=== PATIENT | male | born 1935 | race Caucasian/White ===

== ENCOUNTER 2016-11-25 09:47 | Inpatient (IN) | payer MEDICARE, OTHER ==
--- NOTE | ~2016-11-25 | DS ---
Discharge Summary [address] [place] [address] NAME: BABATUNDE RODRIGUEZ : 31 STATUS : DIS IN PAT#: [id number] AGE: 81 ADM/REG DATE : 11/25/16 MR#: [id number] REPORT SERV DATE: 12/03/16 DICTATED BY: MARIANO LOCKE DATE: 12/03/16 REPORT STATUS : Draft TRANSCRIBED BY: CHELSY DATE: 12/03/16 Data Collection from hospitalization DISCHARGE DIAGNOSES: 1. ST-elevation myocardial infarction - acute. 2. Coronary artery disease with history of coronary artery bypass grafting. 3. Left ventricular dysfunction. 4. Prostate hypertrophy. 5. History of nephrolithiasis. 6. Former smoker. CONSULTATIONS: None. PROCEDURES PERFORMED: Cardiac catheterization and percutaneous coronary intervention on 11/25/2016. MEDICATIONS: Vitamin C 500 mg daily, aspirin 81 mg daily, Lipitor 10 mg at bedtime, Prinivil 2.5 mg daily, Lopressor 12.5 mg twice a day, NitroQuick 0.4 mg sublingually every five minutes x3 as needed, Prilosec 20 mg daily, Florastor 250 mg daily, Flomax 0.4 mg at bedtime, Brilinta 90 mg twice a day, and saw palmetto one capsule daily. CONDITION AT DISCHARGE: Stable. DISPOSITION: The patient was discharged home on a low-sodium, low-cholesterol diet with activities as instructed. He would follow up with Dr. Lambert Chong three weeks following discharge. HOSPITAL COURSE: This is an 81-year-old man who presented to [facility] as a direct transfer from [facility] for evaluation and management of an acute myocardial infarction. The patient has a cardiovascular history of known coronary artery disease with prior bypass surgery in 1998, at which time, he underwent revascularization with three grafts. He subsequently underwent multiple percutaneous coronary intervention procedures, both to his [place] arteries and his vein grafts. He said that the last one was in 2009, but according to the medical record, 2004 is the date when these events were recorded. 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 His EKG in the emergency department was notable for inferolateral ST-elevation and code STEMI was activated. Based on the description of the EKG and his presentation, I agreed to bring him to the agriculture laborer emergently. He received aspirin and heparin en route. He was admitted to the hospital for further evaluation and treatment. Upon admission, he was taken to the cardiac agriculture laborer. He was in obvious distress and was reporting 9/10 chest discomfort. Cardiac catheterization was performed, which demonstrated a culprit large acute marginal branch of the circumflex that was successfully revascularized with a drug-eluting stent. He did have other obstructive lesions in the [place] and graft lesions that were not treated. He had complete resolution of his chest pain at the conclusion of the procedure. The patient was going to be treated with standard acute Discharge Summary [address] [address] NAME: BABATUNDE RODRIGUEZ : 33 STATUS : DIS IN PAT#: [id number] AGE: 81 ADM/REG DATE : 11/25/16 MR#: [id number] REPORT SERV DATE: 12/03/16 DICTATED BY: MARIANO LOCKE DATE: 12/03/16 REPORT STATUS : Draft TRANSCRIBED BY: CHELSY DATE: 12/03/16 coronary syndrome medications including dual anti-platelet therapy with aspirin and Brilinta. He had previously not tolerated Lipitor and was not on a statin prior to arrival, but we would attempt low-dose Crestor as an alternative. Regarding his obstructive disease in the other coronary arteries, we favored a staged approach to the saphenous vein graft- diagonal disease and ramus disease, both of which are obstructive and amenable to percutaneous coronary intervention. We would consider percutaneous coronary intervention of the right coronary artery, but as this was the less severe of the three, we may opt for medical therapy. Echocardiogram was going to be performed. The following day, he was evaluated by Occupational and Physical Therapy. Echocardiogram was performed. He was in no acute distress. He was going to be transferred to the floor. Lipitor was changed to Crestor. Over the next couple of days, he continued to progress. He had no dyspnea or chest pain. Left ventricular ejection fraction was 45%. He had no edema. Discharge planning was performed. On 11/28/2016, he said he felt well. He was in no acute distress. Creatinine level was 1.09. Discharge instructions were given. Due to his improved and stable condition, he was discharged home with the above-stated instructions. Information collected by: Niecy Pina I submit the above information as my discharge summary. CALLIE/CHELSY Mariano Locke MD / [id number] CC: MD DANA Kowalski ANDERS JAVAD
--- NOTE | ~2016-11-25 | HP ---
History And Physical [id number] [place]. [address] NAME: BABATUNDE RODRIGUEZ : 31 STATUS : ADM IN PAT#: [id number] AGE: 81 ADM/REG DATE : 11/25/16 MR#: [id number] REPORT SERV DATE: 11/25/16 DICTATED BY: MARIANO LOCKE DATE: 11/25/16 REPORT STATUS : Draft TRANSCRIBED BY: MODL DATE: 11/25/16 DATE OF ADMISSION: 11/25/2016 ADMISSION DIAGNOSIS: Acute myocardial infarction. HISTORY OF PRESENT ILLNESS: Mr. Rodriguez is an 81-year-old male, who presented to [facility] Cardiac catheterization lab as a direct transfer from [facility] for evaluation and management of acute myocardial infarction. He has a cardiovascular history of known coronary heart disease with prior bypass surgery in 1998, at which time he underwent revascularization with three grafts. He subsequently underwent multiple PCI procedures both to his [place] arteries and his vein grafts. He states that the last one was in 2009, but per the medical record, 2004 is the date where these events are recorded. He states he was in his usual state of health until late last night/early this morning when he experienced severe discomfort in his substernal chest wall. This persisted throughout the morning and eventually led him to present to the ED. His EKG in the ED was notable for inferolateral ST elevations and a code STEMI was activated. Based on the description of the EKG and his presentation, I agreed to bring him to the cemetery laborer emergently. He received aspirin and heparin en route. Upon arrival to cemetery laborer, he was in obvious distress, reporting 9/10 chest discomfort. He reports shortness of breath but denied any palpitations, presyncope, or syncope. He was not taking Plavix but was taking aspirin. Cardiac catheterization was performed. The findings are detailed separately but in summary demonstrated a culprit large acute marginal branch of the circumflex that was successfully revascularized with a drug-eluting stent. He did have other obstructive lesions in the [place] and graft lesions that were not treated. He had complete resolution of his chest pain at the conclusion of the procedure. PAST MEDICAL HISTORY: Coronary heart disease status post three-vessel CABG, 11/19/1998, PIERCE- LAD, SVG-PDA, and SVG-diagonal. The patient has also had multiple stents to the [place] RCA and SVG-diagonal and [place] ramus in 02/2005 at [facility] in [place], [place]. He underwent a stress test in 10/2016 that was interpreted as low risk with no perfusion defects. An echocardiogram that demonstrated normal LV systolic function at that time as well. The patient has prostate hypertrophy, on medical therapy for this, and previous imaging demonstrating nephrolithiasis. Otherwise, no significant past medical history. MEDICATIONS: Per recent office visit, the patient was on aspirin, metoprolol, sublingual nitroglycerin, and tamsulosin. SOCIAL HISTORY: Former smoker. No alcohol. Regular caffeine use. Independent in ADLs. FAMILY HISTORY: Noncontributory. History And Physical [address] [address] NAME: BABATUNDE RODRIGUEZ : 33 STATUS : ADM IN [facility]#: [id number] AGE: 81 ADM/REG DATE : 11/25/16 MR#: [id number] REPORT SERV DATE: 11/25/16 DICTATED BY: MARIANO LOCKE DATE: 11/25/16 REPORT STATUS : Draft TRANSCRIBED BY: CHELSY DATE: 11/25/16 REVIEW OF SYSTEMS: Per HPI. Otherwise, negative. PHYSICAL EXAMINATION: On arrival to the cemetery laborer: VITAL SIGNS: Heart rate approximately 60, blood pressure 120/80, respiratory rate 16, 9/10 chest pain. GENERAL: Appears comfortable. HEENT: Sclerae anicteric; mucous membranes moist. NECK: No JVD. Thyroid not tender or enlarged CARDIOVASCULAR: Regular rhythm with normal S1/S2. No murmurs, rubs, or gallop. PULMONARY: Lung warren CTA. ABDOMEN: Soft, nontender, no masses EXTREMITIES: Warm, no edema. NEUROLOGIC: Grossly without deficits. DIAGNOSTIC DATA: EKG demonstrated sinus rhythm with ST elevations in the inferolateral leads. Cardiac cath dictated separately and summarized in HPI. IMPRESSION/RECOMMENDATIONS: 1. Acute myocardial infarction status post primary PCI to culprit circumflex/OM. 2. Coronary artery disease, history of CABG/PCI. 3. History of tobacco abuse. The patient will be treated with standard ACS medications including dual antiplatelet therapy with aspirin and Brilinta. He previously has not tolerated Lipitor and was not on a statin prior to arrival, but we will attempt low-dose Crestor as an alternative. Regarding obstructive disease in other coronary arteries, I would favor a staged approach to his SVG-diagonal disease and ramus disease, both of which are obstructive and amenable to PCI. Would also consider PCI of the RCA but as this is the less severe of the three, may opt for medical therapy. Timing to be determined by clinical course, but anticipate outpatient followup. We will check an echocardiogram. Further recommendations pending initial clinical course. GREG/CHELSY Mariano Locke MD / [id number] CC: Mariano Locke MD
[2016-11-25 10:39] LABS: BASOPHILS 0.5 %; BASOPHILS ABSOLUTE 0.03 10/3/uL (0.0-0.16); EOSINOPHILS 2.2 %; EOSINOPHILS ABSOLUTE 0.13 10/3/uL (0.0-0.53); HEMATOCRIT 42.1 % (40.0-51.0); HEMOGLOBIN 14.6 g/dL (13.6-17.8); IMMATURE GRANULOCYTES 0.2 %; IMMATURE GRANULOCYTES ABSOLUTE 0.01 10/3/uL (0.0-0.11); LYMPHOCYTES 12.9 %; LYMPHOCYTES ABSOLUTE 0.77 10/3/uL (0.67-4.30); MEAN CORPUS HGB CONC 34.7 g/dL (32.0-36.0); MEAN CORPUSCULAR HEMOGLOB 29.6 pg (26.0-34.0); MEAN CORPUSCULAR VOLUME 85.4 fL (80-100); MONOCYTES ABSOLUTE 0.48 10/3/uL (0.21-1.20); NEUTROPHILS 76.2 %; NEUTROPHILS ABSOLUTE 4.55 10/3/uL (2.02-8.40); PLATELET COUNT 120 10/3/uL (150-400); RBC DISTRIBUTION WIDTH 13.5 % (12.0-16.0); RED CELL COUNT 4.93 10/6/uL (4.7-6.1)
[2016-11-25 10:40] LABS: MANUAL DIFF NO %
[2016-11-25 10:45] LABS: INTERNATIONAL NORMAL RATI 1.3 UNITS (-)
[2016-11-25 10:49] LABS: PARTIAL THROMBO TIME 111.7 SEC (22.5-37.2)
[2016-11-25 10:54] LABS: CALCIUM, SERUM 8.1 MG/DL (8.5-10.4); CHLORIDE, SERUM 109 MMOL/L (96-112); CO2 (CARBON DIOXIDE) 28 MMOL/L (24-34); CREATININE 0.92 MG/DL (0.70-1.30); GFR AFRICAN AMERICAN 89 ML/MIN (>=60); GFR NON AFRICAN AMERICAN 77 ML/MIN (>=60); POTASSIUM, SERUM 4.5 MMOL/L (3.5-5.3); SODIUM, SERUM 141 MMOL/L (135-148)
[2016-11-25 10:55] LABS: BUN (BLOOD UREA NITROGEN) 14 MG/DL (6-23); CHEST PAIN PROFILE TAT 0 Hrs 21 Mins; GLUCOSE, SERUM 141 MG/DL (60-99); TROPONIN I 0.13 NG/ML (<0.05)
[2016-11-25] MEDS ORDERED: PRILO PO (11:40)
[2016-11-25] MEDS ORDERED: LOP25 PO (11:40)
[2016-11-25] MEDS ORDERED: ASAB PO (11:43)
[2016-11-25] MEDS ORDERED: NITROQUICK0.4 MG SL (11:43)
[2016-11-25] MEDS ORDERED: FLOMAX4 PO (11:44)
[2016-11-25] MEDS ORDERED: MULTIVITAMI1 PO (11:45)
[2016-11-25] MEDS ORDERED: SAW PALMETTO PO (11:47)
[2016-11-25] MEDS ORDERED: FLORASTOR250 MG PO (11:48)
[2016-11-25] MEDS ORDERED: VITC500 PO (11:49)
[2016-11-25 13:07] LABS: CK-MB 6.7 NG/ML; CPK 162 U/L (0-200)
[2016-11-25 13:08] LABS: CKMB INDEX (NOT ORD) 4.1
[2016-11-25 19:18] LABS: CK-MB 273.6 NG/ML; CKMB INDEX (NOT ORD) 9.6
[2016-11-26 03:24] LABS: BASOPHILS 0.1 %; BASOPHILS ABSOLUTE 0.01 10/3/uL (0.0-0.16); EOSINOPHILS 2.4 %; EOSINOPHILS ABSOLUTE 0.16 10/3/uL (0.0-0.53); HEMATOCRIT 45.1 % (40.0-51.0); HEMOGLOBIN 15.2 g/dL (13.6-17.8); IMMATURE GRANULOCYTES 0.1 %; IMMATURE GRANULOCYTES ABSOLUTE 0.01 10/3/uL (0.0-0.11); LYMPHOCYTES 12.8 %; LYMPHOCYTES ABSOLUTE 0.86 10/3/uL (0.67-4.30); MANUAL DIFF NO %; MEAN CORPUS HGB CONC 33.7 g/dL (32.0-36.0); MEAN CORPUSCULAR HEMOGLOB 29.5 pg (26.0-34.0); MEAN CORPUSCULAR VOLUME 87.4 fL (80-100); MEAN PLATELET VOLUME 10.4 fL (9.2-13.0); MONOCYTES 8.7 %; MONOCYTES ABSOLUTE 0.58 10/3/uL (0.21-1.20); NEUTROPHILS 75.9 %; NEUTROPHILS ABSOLUTE 5.08 10/3/uL (2.02-8.40); PLATELET COUNT 118 10/3/uL (150-400); RBC DISTRIBUTION WIDTH 13.7 % (12.0-16.0); RED CELL COUNT 5.16 10/6/uL (4.7-6.1); WHITE BLOOD CELLS 6.7 10/3/uL (4.5-10.5)
[2016-11-26 03:59] LABS: BUN (BLOOD UREA NITROGEN) 13 MG/DL (6-23); CALCIUM, SERUM 8.3 MG/DL (8.5-10.4); CHLORIDE, SERUM 107 MMOL/L (96-112); CK-MB 135.1 NG/ML; CO2 (CARBON DIOXIDE) 30 MMOL/L (24-34); CPK 1853 U/L (0-200); CREATININE 1.21 MG/DL (0.70-1.30); GFR AFRICAN AMERICAN 64 ML/MIN (>=60); GFR NON AFRICAN AMERICAN 55 ML/MIN (>=60); GLUCOSE, SERUM 116 MG/DL (60-99); POTASSIUM, SERUM 4.8 MMOL/L (3.5-5.3); SODIUM, SERUM 141 MMOL/L (135-148); TRIGLYCERIDE 188 MG/DL (< 150)
[2016-11-26 04:08] LABS: CHOL/HDL RATIO(NOT ORDER) 4.9 (0-5); CHOLESTEROL 133 MG/DL (< 200); CKMB INDEX (NOT ORD) 7.3; HDL CHOLESTEROL 27 MG/DL (> 39); LDL CHOLESTEROL 69 MG/DL (< 130); NON-HDL CHOLESTEROL 106 MG/DL (< 160)
[2016-11-26 10:46] LABS: CK-MB 59.4 NG/ML; CKMB INDEX (NOT ORD) 4.8
[2016-11-27 06:46] LABS: CREATININE 1.2 MG/DL (0.70-1.30)
[2016-11-28 05:32] LABS: HEMATOCRIT 43.4 % (40.0-51.0); HEMOGLOBIN 14.7 g/dL (13.6-17.8)
[2016-11-28 05:47] LABS: CALCIUM, SERUM 8.7 MG/DL (8.5-10.4); CHLORIDE, SERUM 108 MMOL/L (96-112); CO2 (CARBON DIOXIDE) 26 MMOL/L (24-34); CREATININE 1.09 MG/DL (0.70-1.30); GFR AFRICAN AMERICAN 72 ML/MIN (>=60); GFR NON AFRICAN AMERICAN 62 ML/MIN (>=60); GLUCOSE, SERUM 137 MG/DL (60-99); POTASSIUM, SERUM 4.1 MMOL/L (3.5-5.3); SODIUM, SERUM 138 MMOL/L (135-148)
[2016-11-28 05:48] LABS: BUN (BLOOD UREA NITROGEN) 18 MG/DL (6-23)
[2016-11-28] MEDS ORDERED: LIPITOR10 PO (13:12)
[2016-11-28] MEDS ORDERED: PRIN2.5 PO (13:13)
[2016-11-28] MEDS ORDERED: BRILINTA90 MG PO (13:13)
[2017-02-08] MEDS ORDERED: PRAV10 PO (10:43)
[2017-02-10] MEDS ORDERED: LIPITOR40 PO (10:03)
== END 2016-11-28 14:02 | disposition home or self-care (01) | DRG 247 ==
LOC: SSU2 09:47 → CCU 11:55 → 5NO 11-26 14:11
PROVIDERS: Internal Medicine Cardiovascular Disease
PROC: 027034Z Dilation of Coronary Artery, One Artery with Drug-eluting Intraluminal Device, Percutaneous Approach (ICD-10-PCS; principal; 2016-11-25)
PROC: 4A023N7 Measurement of Cardiac Sampling and Pressure, Left Heart, Percutaneous Approach (ICD-10-PCS; 2016-11-25)
PROC: B2151ZZ Fluoroscopy of Left Heart using Low Osmolar Contrast (ICD-10-PCS; 2016-11-25)
PROC: B2131ZZ Fluoroscopy of Multiple Coronary Artery Bypass Grafts using Low Osmolar Contrast (ICD-10-PCS; 2016-11-25)
PROC: B2181ZZ Fluoroscopy of Left Internal Mammary Bypass Graft using Low Osmolar Contrast (ICD-10-PCS; 2016-11-25)
PROC: B2111ZZ Fluoroscopy of Multiple Coronary Arteries using Low Osmolar Contrast (ICD-10-PCS; 2016-11-25)
DX: I21.19 ST elevation (STEMI) myocardial infarction involving other coronary artery of inferior wall (principal); Z95.1 Presence of aortocoronary bypass graft; I10 Essential (primary) hypertension; I25.10 Atherosclerotic heart disease of native coronary artery without angina pectoris; N40.0 Benign prostatic hyperplasia without lower urinary tract symptoms; N20.0 Calculus of kidney; Z95.5 Presence of coronary angioplasty implant and graft; Z87.891 Personal history of nicotine dependence
CPT/HCPCS: 71010; 80048; 80061; 82550; 82553; 82565; 82962; 83735; 84132; 84295; 84484; 85014; 85018; 85025; 85610; 85730; 87641; 93005; 93307; 93325; 93459; 97161-GP; 97165-GO; 99152; 99153; A9270-GY; C1713; C1725; C1769; C1874; C1887; C1894; C9606; G8978-CI-GP; G8979-CI-GP; G8980-CI-GP; G8987-CH-GO; G8988-CH-GO; G8989-CH-GO; J0583; J2250; J3010; Q9967